=== PATIENT | female | born 1985 ===

== ENCOUNTER 2017-10-17 04:53 | Emergency (ER) | payer BC ==
[2017-10-17] MEDS ORDERED: DiphenhydrAMINE 50 mg/ml Inj IVP STA (05:10)
[2017-10-17] MEDS ORDERED: Sodium Chloride 0.9% 1,000 ML ONE (05:14)
[2017-10-17 05:17] VITALS: O2SAT 99
--- NOTE | 2017-10-17 06:32 | C.PDOC ---
History Of Present Illness 31 year old female presents to the ER with a complaint of an allergic reaction. Patient states she was recently started on amoxicillin, motrin, and tylenol w/ codeine for dental infection. She was taking the motrin and amoxicillin for 2 days, however, tonight she woke up with swelling and generalized itching after taking the tylenol w/ codeine for the first time. Denies SOB , wheezing or oral lesions. Time Seen by Provider: 10/17/17 05:08 Chief Complaint (Nursing): Allergic Reaction History Per: Patient History/Exam Limitations: no limitations Onset/Duration Of Symptoms: Hrs Current Symptoms Are (Timing): Still Present Possible Cause: Medication Associated Symptoms: Skin Rash, Swelling Home/EMS Treatment: None Recent travel outside of the [place]: No Past Medical History Reviewed: Historical Data, Nursing Documentation, Vital Signs Vital Signs: Last Vital Signs Temp 98.8 F 10/17/17 06:58 Pulse 70 10/17/17 06:58 Resp 16 10/17/17 06:58 BP 131/80 10/17/17 06:58 Pulse Ox 99 10/17/17 06:58 - Medical History PMH: No Chronic Diseases Surgical History: No Surg Hx Family History: States: Unknown Family Hx - Social History Hx Alcohol Use: No Hx Substance Use: No - Immunization History Hx Tetanus Toxoid Vaccination: No Hx Influenza Vaccination: No Hx Pneumococcal Vaccination: No Review Of Systems Constitutional: Negative for: Fever, Chills Eyes: Positive for: Other (Periorbital swelling) ENT: Negative for: Mouth Swelling, Throat Swelling, Other (Oral lesions) Respiratory: Negative for: Shortness of Breath, Wheezing Skin: Positive for: Rash Physical Exam - Physical Exam Appears: Non-toxic Skin: Warm, Dry, Rash (Diffuse urticaria) Head: Atraumatic, Normacephalic Eye(s): bilateral: PERRL, EOMI, Other (Swelling to periorbital area) Nose: Normal Oral Mucosa: Moist, No Other (Lesions) Tongue: Normal Appearing, No Swelling Lips: Normal Appearing, No Swelling Throat: Normal, No Erythema, No Other (Swelling) Neck: Normal, Supple, No Other (Swelling) Chest: Symmetrical, No Tenderness Cardiovascular: Rhythm Regular Respiratory: Normal Breath Sounds, No Accessory Muscle Use, No Rales, No Rhonchi , No Stridor, No Wheezing Gastrointestinal/Abdominal: Soft, No Tenderness Neurological/Psych: Oriented x3, Normal Speech ED Course And Treatment O2 Sat by Pulse Oximetry: 99 (Room air) Pulse Ox Interpretation: Normal Progress Note: Benadryl, pepcid, and solumedrol administered. On reevaluation, patient is resting comfortably in the ER in no acute respiratory distress, rash and swelling has improved, vitals are stable, will discharge home with Rx and instructions to follow up with PMD or return if symptoms worsen. Disposition Counseled Patient/Family Regarding: Diagnosis, Need For Followup, Rx Given - Disposition Disposition: HOME/ ROUTINE Disposition Time: 06:30 Condition: STABLE Additional Instructions: D/c tylenol with codeine Take medications as prescribed If swelling persist with amoxicillin, please do not take as well Return to ER if imncreasing swelling, rash or difficlulty breathing Prescriptions: Cetirizine HCl [Zyrtec] 10 mg PO DAILY #14 capsule DiphenhydrAMINE [Benadryl] 50 mg PO Q6H #20 cap Famotidine [Pepcid] 20 mg PO DAILY #10 tab predniSONE [Prednisone] 40 mg PO DAILY #8 tab Forms: [email or web address] (Romanian), Work Excuse - Clinical Impression Clinical Impression: Allergic urticaria - 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 - Scribe Statement The provider has reviewed the documentation as recorded by the Scribnatasha Uribe All medical record entries made by the Scribe were at my direction and personally dictated by me. I have reviewed the chart and agree that the record accurately reflects my personal performance of the history, physical exam, medical decision making, and the department course for this patient. I have also personally directed, reviewed, and agree with the discharge instructions and disposition.
[2017-10-17 06:59] VITALS: BP 131/80; PULSE 70; RESP 16; TEMP 98.8
== END 2017-10-17 06:59 | disposition home or self-care (01) ==
LOC: C.ER 04:53
DX: L50.0 Allergic urticaria (principal)
CPT/HCPCS: 96374; 96375; 99284; J1200; J2930